=== PATIENT | male | born 2005 | race Hispanic/Latino ===

== ENCOUNTER 2025-03-11 03:19 | Emergency (ER) | payer BC ==
[~2025-03-11] VITALS: Ht 182.9 cm; Wt 137.9 kg
[2025-03-11] MEDS: ketOROlac 30MG VIAL (30MG/ML) IVP ONE (04:27)
[2025-03-11] MEDS: FAMOTIDINE 20MG TAB PO ONE (04:27)
[2025-03-11] MEDS: ondanSETRON 4MG INJ IVP ONE (04:27)
[2025-03-11 05:02] LABS: BASOPHILS # (AUTO) 0.04 K/uL (0.00-0.20); BASOPHILS % (AUTO) 0.3 % (0.0-5.0); EOSINOPHILS # (AUTO) 0.07 K/uL (0.00-0.70); EOSINOPHILS % (AUTO) 0.6 % (0.0-8.0); HEMATOCRIT 49.6 % (42-54); IMMATURE GRANULOCYTE ABSOLUTE 0.05 K/uL (0-1); LYMPHOCYTES # (AUTO) 1.6 K/uL (1.0-4.8); LYMPHOCYTES % (AUTO) 13.1 % (21.0-51.0); MEAN CORPUSCULAR HEMOGLOBIN 29.7 pg (27.0-33.0); MEAN CORPUSCULAR HGB CONC 33.7 g/dL (32.0-36.0); MEAN CORPUSCULAR VOLUME 88.3 fL (80-100); MONOCYTES # (AUTO) 0.9 K/uL (0.1-1.0); MONOCYTES % (AUTO) 7.2 % (3.0-13.0); NEUTROPHILS # (AUTO) 9.9 K/uL (1.8-7.7); NEUTROPHILS % (AUTO) 78.4 % (40.0-77.0); PLATELET COUNT (AUTO) 185 K/uL (130-400); RED BLOOD CELL COUNT(AUTO) 5.62 MIL/uL (4.50-6.20); RED CELL DISTRIBUTION WIDTH 12.5 % (11.0-15.5); WHITE BLOOD COUNT (AUTO) 12.6 K/uL (4.8-10.8)
[2025-03-11 05:08] LABS: CREATININE 0.9 mg/dL (0.5-1.3); POTASSIUM 3.7 mmol/L (3.5-5.1)
--- NOTE | 2025-03-11 05:11 | ERN ---
ED Note History of Present Illness Stated Complaint: C/O RUQ PAIN Chief Complaint: Abdominal Pain Time Seen by MD: 03:33 Dictation: This is a 19-year-old morbidly obese male who presented to the emergency room with complaints of abdominal pain mostly in the right upper quadrant. Allergies: Coded Allergies: No Known Allergies (Unverified Allergy, Unknown, 03/11/25) Home Meds Active Scripts Amoxicillin/Potassium Clav (Augmentin Xr 1,000-62.5 Tab) 1,000 Mg-62.5 Mg Tab.er.12h, 1 TAB PO BID for 10 Days, #20 TAB 0 Refills with food Prov:JUSTIN ARRIAGA MD 03/11/25 Famotidine (Pepcid) 40 Mg Tablet, 1 TAB PO DAILY for 30 Days, #30 TAB 0 Refills Prov:JUSTIN ARRIAGA MD 03/11/25 Ondansetron (Ondansetron Odt) 4 Mg Tab.rapdis, 4 MG PO Q6HPRN PRN for nausea, #16 TAB 0 Refills Prov:JUSTIN ARRIAGA MD 03/11/25 Ketorolac Tromethamine (Toradol) 10 Mg Tab, 1 TAB PO TID for pain for 5 Days, #15 TAB 0 Refills Prov:JUSTIN ARRIAGA MD 03/11/25 Past Medical History Past Medical History: Other Additional Past Medical Hx: HX OF GALLSTONES Surgical History: None RN Note Reviewed/Agreed w/PFSH: Yes Review of System Dictation Constitutional: Negative for fever,chills, and weight loss Eyes: Negative for injury, pain,redness, and discharge ENT: Negative for injury,pain or swelling Cardiovascular: Negative for chest pain, palpitations, and edema Respiratory: Negative for shortness of breath, cough, and wheezing, Abdomen/GI: Positive for right upper quadrant abdominal pain, nausea, vomiting, diarrhea, and constipation Back: Negative for injury and pain : Negative for injury, bleeding and discharge MS/Extremity: Negative for injury and deformity Skin: Negative for rash, and discoloration Neuro: Negative for headache, weakness, numbness, tingling, and seizure Psych: Negative for suicide ideation, homicidal ideation, and hallucinations Initial Vital Sign VS Vital Signs Date Time Temp Pulse Resp B/P (MAP) Pulse Ox O2 Delivery O2 Flow Rate FiO2 03/11/25 03:22 99.1 102 20 139/83 97 Room Air Physical Exam Dictation General: awake, alert, NAD morbidly obese Head/Face: Normocephalic, atraumatic Eyes: PERRL, EOMI, vision at baseline ENT: oral cavity clear, TMs clear, no signs of infection Neck: Trachea midline, supple, no nuchal rigidity Cardiovascular: RRR, normal S1/S2, No MRGs, no JVD Respiratory: CTAB, no respiratory distress, No rales or wheezes Abdomen: Soft, mild tenderness in the right upper quadrant, non-distended, normal bowel sounds, no guarding or rebound. Skin: Warm, dry, normal turgor, no rash MS/Extremity: Pulses equal, no cyanosis, neurovascular intact, FROM Neuro: COAx4, GCS 15, strength 5/5, CN 2-12 intact, normal cerebellar exam, normal gait, Psych: Normal behavior, mood, and affect normal Extremities-trace edema without any palpable cords, Homans sign is negative Results (Laboratory/Radiology) Laboratory/Radiology Laboratory Tests Test 03/11/25 04:49 White Blood Count 12.6 K/uL (4.8-10.8) H Red Blood Count 5.62 MIL/uL (4.50-6.20) Hemoglobin 16.7 g/dL (14.0-18.0) Hematocrit 49.6 % (42-54) Mean Corpuscular Volume 88.3 fL (80-100) Mean Corpuscular Hemoglobin 29.7 pg (27.0-33.0) Mean Corpuscular Hemoglobin Concent 33.7 g/dL (32.0-36.0) Red Cell Distribution Width 12.5 % (11.0-15.5) Platelet Count 185 K/uL (130-400) Mean Platelet Volume 9.9 fL (7.5-10.5) Immature Granulocyte % (Auto) 0.4 % (0-1) Neutrophils (%) (Auto) 78.4 % (40.0-77.0) H Lymphocytes (%) (Auto) 13.1 % (21.0-51.0) L Monocytes (%) (Auto) 7.2 % (3.0-13.0) Eosinophils (%) (Auto) 0.6 % (0.0-8.0) Basophils (%) (Auto) 0.3 % (0.0-5.0) Neutrophils # (Auto) 9.9 K/uL (1.8-7.7) H Lymphocytes # (Auto) 1.6 K/uL (1.0-4.8) Monocytes # (Auto) 0.9 K/uL (0.1-1.0) Eosinophils # (Auto) 0.07 K/uL (0.00-0.70) Basophils # (Auto) 0.04 K/uL (0.00-0.20) Absolute Immature Granulocyte (auto 0.05 K/uL (0-1) Nucleated Red Blood Cells 0.0 % (0.0-0.19) Sodium Level 136 mmol/L (136-145) Potassium Level 3.7 mmol/L (3.5-5.1) Chloride Level 100 mmol/L (101-111) L Carbon Dioxide Level 28 mmol/L (21-32) Blood Urea Nitrogen 10 mg/dL (7-18) Creatinine 0.9 mg/dL (0.5-1.3) Glomerular Filtration Rate Calc 125 mL/min (>90) Random Glucose 87 mg/dL (70-105) Total Calcium 8.9 mg/dL (8.5-10.1) Lipase 23 U/L (16-77) Labs Reviewed?: Yes ED Course ED Course Orders Procedure Category Date Status Time Cbc With Differential LAB 03/11/25 Complete 03:31 Ketorolac PHA 03/11/25 Complete Tromethamine 30mg/Ml 04:00 Ondansetron 4mg Inj PHA 03/11/25 Complete (Zofran 4mg Inj) 04:00 Famotidine 20mg Tab PHA 03/11/25 Complete (Pepcid 20mg Tab) 04:00 Lipase LAB 03/11/25 Complete 03:31 Basic Metabolic Panel LAB 03/11/25 Complete 03:31 Us Abdominal Ruq\Ltd US 03/11/25 Taken 05:11 Amp/Sulbac 1.5gm+Ns PHA 03/11/25 Complete 100ml (Unasyn 1.5gm+ 06:30 Current Medications Medications (Trade) Dose Ordered Sig/Kinza Route PRN Reason Start Time Stop Time Status Last Admin Dose Admin Ampicillin Sodium/ Sulbactam Sodium (Unasyn 1.5gm+NS 100ml) 1.5 gm ONCE ONCE IV 03/11/25 06:30 03/11/25 06:31 DC Famotidine (Pepcid 20mg Tab) 20 mg ONCE ONCE PO 03/11/25 04:00 03/11/25 04:01 DC 03/11/25 04:27 Ketorolac Tromethamine (toRADol) 30 mg ONCE ONCE IVP 03/11/25 04:00 03/11/25 04:01 DC 03/11/25 04:27 Ondansetron HCl (zoFRAN 4MG INJ) 4 mg ONCE ONCE IVP 03/11/25 04:00 03/11/25 04:01 DC 03/11/25 04:27 Vital Signs Date Time Temp Pulse Resp B/P (MAP) Pulse Ox O2 Delivery O2 Flow Rate FiO2 03/11/25 03:22 99.1 102 20 139/83 97 Room Air We will perform diagnostic labs, advanced imaging and administer medications according to the patient's complaint. Once the results are available, will review and personally interpreted the labs to rule out any acute life-threate ki emergency the trach require immediate intervention and treatment. I will then re-evaluate the patient after treatment and diagnostic exams have return to determine whether the patient requires any further testing, can safely be discharged home or need further admission to hospital for additional treatment and evaluation. Reviewed labs CBC shows a white count of 12.6 hemoglobin of 16.7 platelets 185. BNP 7 is within normal limits lipase is normal Right upper quadrant ultrasound is pending 6:24 A.M. I had a long discussion with the patient and his mother about cholelithiasis, biliary colic and the role of antibiotics in cholecystitis. Also depending on cystic duct obstruction, frequency of the biliary colic, surgeon may recommend cholecystectomy. I counseled him extensively on weight loss diet and exercise to avoid long-term complications he and mother verbalized full understanding We will give him a dose of Unasyn and discharge him on antibiotics as he stated that the combination I gave him here really worked very well for him-we will send a prescription for Toradol, Zofran and Pepcid. Patient's mother stated that they have an appointment with Dr. Yates the general surgeon on March 18 Medical Decision Making MDM MDM: Differential diagnosis: Cholecystitis, biliary colic, peptic ulcer disease, gastritis, diverticulitis Rationale: Tests considered and ordered secondary to shared decision making include: Previous outside records reviewed: Old ER visits. Risk of complication and/or morbidity or mortality of patient management: None Medications-Per medication reconciliation Need for hospitalization: Patient does not meet criteria for hospitalization. Need for emergency major/minor surgery: No There are no social concerns with this patient. Prescription drug management Prescriptions will include symptomatic care Patient's prior external medical records from other ER visits were reviewed by me as indicated. Prior testing and results from previous visits were reviewed. Prior tests were taken into account with medical decision making and resource utilization, independent historian/historians were used to obtain complete medical history. I independently interpreted the test that were performed, results were reviewed by me and considered findings on radiology if ordered. Medical management and examination interpretation discussions were had by me with other qualified healthcare professionals as indicated for the patient's care. Problem List Problem List: (1) Biliary colic (2) Cholelithiasis (3) Leukocytosis DX & DISP Disposition: Discharge Departure Impression: Primary Impression: Cholelithiasis Additional Impressions: Biliary colic, Leukocytosis Condition: Stable Scripts Amoxicillin/Potassium Clav (Augmentin Xr 1,000-62.5 Tab) 1,000 Mg-62.5 Mg Ta b.er.12h 1 TAB PO BID for 10 Days, #20 TAB 0 Refills with food Prov: JUSTIN ARRIAGA MD 03/11/25 Famotidine (Pepcid) 40 Mg Tablet 1 TAB PO DAILY for 30 Days, #30 TAB 0 Refills Prov: JUSTIN ARRIAGA MD 03/11/25 Ondansetron (Ondansetron Odt) 4 Mg Tab.rapdis 4 MG PO Q6HPRN PRN for nausea, #16 TAB 0 Refills Prov: JUSTIN ARRIAGA MD 03/11/25 Ketorolac Tromethamine (Toradol) 10 Mg Tab 1 TAB PO TID for pain for 5 Days, #15 TAB 0 Refills Prov: JUSTIN ARRIAGA MD 03/11/25 Additional Instructions: Patient and the caregiver have been informed of all the diagnostic tests and the imaging conducted during the today's visit to the emergency room and has verbalized understanding of the results I have personally reviewed and interpreted all diagnostic exams performed here in the ER today as well as the vital signs documented by the nursing staff. The patient is now being discharged to home and should follow up with the primary care physician or the specialist as directed by the ER staff. Follow-up with primary care provider in 1 to 2 days. Take medications as directed here in the emergency room. Okay to continue home medications unless otherwise discussed during your visit in the emergency room today. Return to your nearest emergency room if symptoms worsen or if there is no improvement. Call 911 if you need immediate assistance. Take Tylenol or Motrin [id number] as needed and if no contraindications are present. Increase oral hydration. A wound culture or urine culture was ordered here in the emergency room department please follow-up with primary care provider and advise them to get repeat ports from our facility. If you had any Ishan wrap/splints that were applied here, please do not remove them until you see your primary care or specialty. Should the patient have recurrent pain despite the antibiotics and the current regimen, I instructed the patient and mother to return to the emergency room for admission to the hospital Referrals: BRIDGETT HOYOS MD (PCP) JUSTIN ARRIAGA MD Mar 11, 2025 05:11
[2025-03-11] MEDS ORDERED: ONDA-243 PO (06:23)
[2025-03-11] MEDS ORDERED: FAMO40TA75 PO (06:23)
[2025-03-11] MEDS ORDERED: KETO10 PO (06:23)
[2025-03-11] MEDS ORDERED: AMOX-427 PO (07:22)
[2025-03-11] MEDS: UNASYN 1.5GM+NS 100ML IV ONE (07:40)
--- NOTE | 2025-03-11 08:04 | HMCIMG ---
US ABDOMINAL RUQ\E\LTD HISTORY: Right upper quadrant pain COMPARISON: None TECHNIQUE: Right upper quadrant abdominal ultrasound study was performed. FINDINGS: Liver measured 15.1 cm. Left hepatic lobe is not well visualized. [place] is not well seen limiting evaluation. Liver is echogenic consistent with liver parenchymal disease. Gallstone is seen in the gallbladder neck region. Common duct measures 4 mm. No evidence of gallbladder wall thickening is seen. Right kidney measures 10.9 x 5.1 x 5 cm. No hydronephrosis is seen of the right kidney. IMPRESSION: 1. Gallstone in the distended gallbladder /gallbladder neck region. No ductal dilatation is seen. 2. No hydronephrosis is seen.
[2025-03-11 08:25] VITALS: BP 139/93; PULSE 86; RESP 16; TEMP 99; O2SAT 95
== END 2025-03-11 08:30 | disposition home or self-care (01) ==
LOC: EDH 03:19
DX: K80.20 Calculus of gallbladder without cholecystitis without obstruction (principal); K80.50 Calculus of bile duct without cholangitis or cholecystitis without obstruction; D72.829 Elevated white blood cell count, unspecified; Z79.1 Long term (current) use of non-steroidal anti-inflammatories (NSAID)
CPT/HCPCS: 99284; 96365; 76705; 96375; 80048; 83690; 85025; 36415; J1885; J2405; J0295

== ENCOUNTER 2025-09-10 11:35 | Day surgery (SDC) | payer BC ==
[2025-09-06 10:57] LABS: IMMATURE GRANULOCYTE ABSOLUTE 0.01 K/uL (0-1); NUCLEATED RED BLOOD CELLS 0.0 % (0.0-0.19); PLATELET COUNT (AUTO) 194 K/uL (130-400); RED BLOOD CELL COUNT(AUTO) 5.45 MIL/uL (4.50-6.20); RED CELL DISTRIBUTION WIDTH 12.6 % (11.0-15.5); WHITE BLOOD COUNT (AUTO) 6.9 K/uL (4.8-10.8)
[2025-09-06 11:03] VITALS: BP 139/86; PULSE 82; RESP 18; TEMP 97.5
[2025-09-06 11:03] LABS: INR 1.14 (0.85-1.15)
[2025-09-10] VITALS (18 sets, daily range): BP systolic 109–159; BP diastolic 56–86; PULSE 93–114; RESP 17–29; TEMP 96.8–98
[~2025-09-10] VITALS: Ht 182.9 cm; Wt 119.3 kg
[2025-09-10] MEDS: LACTATED RINGERS 1000ML 1,000 ML IV ONE (12:32)
[2025-09-10] MEDS ORDERED: MIDAZOLAM HCL 1 MG/ML 2ML VIAL ONE (12:59)
[2025-09-10] MEDS ORDERED: CALDOLOR 800MG+NS 250ML 250 ML IV ONE (13:13)
[2025-09-10] MEDS ORDERED: LIDOCAINE 2%-EPI 1:200,000 20 ML VIAL IJ ONE (13:15)
[2025-09-10] MEDS: INDOCYANINE GREEN 25 MG VIAL IJ ONE (13:20)
[2025-09-10 13:26] LABS: CREATININE 0.8 mg/dL (0.5-1.3); GLOMERULAR FILTR. RATE CALC 128.0 mL/min (>90); GLUCOSE,RANDOM 86.0 mg/dL (70-105); SODIUM SERUM 141.0 mmol/L (136-145); UREA NITROGEN, BLOOD 10.0 mg/dL (7-18)
[2025-09-10 13:31] LABS: ASPARTATE AMINOTRANSFERASE 22.0 U/L (10-37); TOTAL PROTEIN, SERUM 7.3 g/dL (6.0-8.3)
[2025-09-10] MEDS ORDERED: TRAM-543 PO (13:47)
[2025-09-10] MEDS ORDERED: SUGAMMADEX SODIUM 200 MG/2 ML VIAL IV ONE (15:59)
--- NOTE | 2025-09-10 16:31 | OP ---
Operative Note: DATE OF PROCEDURE: 09/10/25 SURGEON: MAGDALENA RETANA MD SHED HAND: DIANE Almazan ANESTHESIA: general ANESTHESIOLOGIST/[employer] OFFICER: MARSHALL Figueroa PREOPERATIVE DIAGNOSIS: symptomatic cholelithiasis POSTOPERATIVE DIAGNOSIS: acute and chronic cholecystitis SYNOPSIS: large fatty liver, acutely and chronically inflammed gallbladder PROCEDURE: Robotic assisted cholecystectomy ESTIMATED BLOOD LOSS: 50 ml INDICATIONS: [age] year old male patient who was presented with symptomatic cholelithiasis which was confirmed on the preoperative abdominal ultrasound. A robotic cholecystectomy was indicated during this admission. Informed consent was obtained prior to the procedure which included a discussion about the possible risks such as bleeding, infection, bile duct injury, bile leak, and injury to surrounding viscera. DESCRIPTION OF PROCEDURE: Patient was taken to the operating room placed on the operating table in supine position. Next general anesthesia was induced and the patient was intubated. There abdomen was prepped and draped in a sterile fashion. A time-out was called and the patient's identity procedure and preoperative antibiotics were confirmed. I insufflated the abdominal cavity with a Veress needle. Once a pneumoperitoneum was established I entered the abdominal cavity using a 12 mm Optiview port in the left mid abdomen. I placed three additional 8 mm ports across a straight line. The robot was docked to the patient. Pertinent findings: Large fatty liver, acutely and chronically inflamed gallbladder The gallbladder was retracted in a cephalad direction. I began to carefully dissect out the hepatic cystic triangle. I used ICG green to confirm ductal anatomy. The critical view was established. I identified the anterior and posterior cystic arteries. They were clipped and divided. The cystic duct was identified. This was clipped and divided. I then cauterized the gallbladder off the liver fossa bed. I checked the liver bed for bleeding. Hemostasis was obtained with electrocautery, Arixtra powder and packing. The gallbladder was placed in a specimen bag and removed from the abdominal cavity. I closed the fascia of the 12 mm port with a 1-0 Vicryl suture on a Tim-Chris closure device. The pneumoperitoneum was evacuated. Skin incisions were closed with 0.25% Marcaine. Dermabond was applied. Sponge needle instrument counts were accurate. Patient's anesthesia was reversed and they were extubated and taken to recovery room in stable condition. MAGDALENA RETANA MD Sep 10, 2025 16:31
[2025-09-10] MEDS ORDERED: AMOX-427 PO (16:33)
--- NOTE | 2025-09-10 18:45 | NUR ---
d/c mother given d/c instructions. pt taken out via w/c by donavan liao rn. pt in no distress. no s/s of bleeding noted.
== END 2025-09-10 18:45 | disposition home or self-care (01) ==
LOC: DAH 11:35
PROVIDERS: ATTEND Surgery
DX: K80.12 Calculus of gallbladder with acute and chronic cholecystitis without obstruction (principal); E78.5 Hyperlipidemia, unspecified; K76.0 Fatty (change of) liver, not elsewhere classified; Z79.01 Long term (current) use of anticoagulants; Z79.899 Other long term (current) drug therapy
CPT/HCPCS: 85025; 85610; 85730; 36415 ×2; 47563; 80053; 88304; 64488; A6260; A4663; J7120 ×2; A4606; A4215 ×2; J3010 ×2; J0690 ×2; J3490 ×3; J2250; J2704 ×2; J2405; J2795; J1741; A4930; A4213; A4222; A4221; A4216; A4223 ×2; A4600; S2900; J0665